=== PATIENT | female | born 2000 | race Caucasian/White ===

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

== ENCOUNTER 2019-01-04 15:13 | Emergency (ER) | payer OTHER ==
[~2019-01-04] VITALS: Ht 162.6 cm; Wt 58.5 kg
[2019-01-04 15:30] VITALS: BP 110/75; Ht 162.6 cm; Wt 58.5 kg
== END 2019-01-04 18:51 | disposition home or self-care (01) ==
LOC: ED 15:13
DX: J02.9 Acute pharyngitis, unspecified (principal)
CPT/HCPCS: J0561; J1100

== ENCOUNTER 2019-01-17 16:16 | Emergency (ER) | payer OTHER ==
[~2019-01-17] VITALS: Ht 165.1 cm; Wt 60.8 kg
[2019-01-17 16:19] VITALS: BP 139/70; Ht 165.1 cm; Wt 60.8 kg
== END 2019-01-17 16:51 | disposition home or self-care (01) ==
LOC: ED 16:16
DX: J02.9 Acute pharyngitis, unspecified (principal)

== ENCOUNTER 2019-07-25 16:01 | Emergency (ER) | payer OTHER ==
[~2019-07-25] VITALS: Ht 162.6 cm; Wt 59.0 kg
[2019-07-25 16:07] VITALS: Ht 162.6 cm; Wt 59.0 kg
[2019-07-25 18:47] VITALS: BP 115/85
== END 2019-07-25 18:47 | disposition home or self-care (01) ==
LOC: ED 16:01
DX: J02.9 Acute pharyngitis, unspecified (principal); H92.03 Otalgia, bilateral
CPT/HCPCS: 86308; J1100

== ENCOUNTER 2019-08-17 13:28 | Emergency (ER) | payer OTHER ==
[~2019-08-17] VITALS: Ht 162.6 cm; Wt 61.7 kg
[2019-08-17 13:45] VITALS: BP 135/83; Ht 162.6 cm; Wt 61.7 kg
== END 2019-08-17 14:31 | disposition home or self-care (01) ==
LOC: ED 13:28
DX: L04.0 Acute lymphadenitis of face, head and neck (principal)

== ENCOUNTER 2019-10-14 03:53 | Emergency (ER) | payer BC ==
[~2019-10-14] VITALS: Ht 162.6 cm; Wt 58.5 kg
[2019-10-14 04:05] VITALS: Ht 162.6 cm; Wt 58.5 kg
[2019-10-14 06:22] VITALS: BP 126/90
== END 2019-10-14 06:22 | disposition home or self-care (01) ==
LOC: ED 03:53
DX: R04.1 Hemorrhage from throat (principal)

== ENCOUNTER 2020-07-04 14:27 | Emergency (ER) | payer BC ==
[~2020-07-04] VITALS: Ht 162.6 cm; Wt 59.9 kg
[2020-07-04 14:39] VITALS: Ht 162.6 cm; Wt 59.9 kg
[2020-07-04 15:53] VITALS: BP 127/73
== END 2020-07-04 15:53 | disposition home or self-care (01) ==
LOC: ED 14:27
DX: N39.0 Urinary tract infection, site not specified (principal)

== ENCOUNTER 2020-08-22 17:54 | Emergency (ER) | payer BC ==
[~2020-08-22] VITALS: Ht 162.6 cm; Wt 59.4 kg
[2020-08-22 18:28] VITALS: Ht 162.6 cm; Wt 59.4 kg
[2020-08-22 19:20] LABS: BASOPHIL % 0.3 % (0-2); PLATELET COUNT 194 x10^3mcL (130-400)
[2020-08-22 19:37] LABS: RED CELL DISTRIBUTION WIDTH 19.3 % (11.5-14.5)
[2020-08-22 19:41] LABS: CALCIUM 8.8 mg/dL (8.5-10.1); CHLORIDE SERUM 101 mmol/L (98-107); CREATININE SERUM 0.8 mg/dL (0.6-1.0); GFR1 > 60 mL/min; GLUCOSE SERUM 97 mg/dL (74-106); POTASSIUM SERUM 3.7 mmol/L (3.5-5.1); SODIUM SERUM 135 mmol/L (136-145)
[2020-08-22 19:47] LABS: ALBUMIN 3.6 g/dL (3.4-5.0); ALKALINE PHOSPHATASE 48 U/L (46-116); ALT/SGPT 15 U/L (14-59); AST/SGOT 13 U/L (15-37); BILIRUBIN TOTAL 0.6 mg/dL (0.20-1.00); LIPASE 122 IU/L (73-393); TOTAL PROTEIN, SERUM 7.6 g/dL (6.4-8.2)
[2020-08-22 19:55] LABS: microscopic required? NO
[2020-08-22 20:06] LABS: urine erythrocyte NEGATIVE (NEGATIVE)
[2020-08-22 21:36] VITALS: BP 112/61
== END 2020-08-22 21:36 | disposition home or self-care (01) ==
LOC: ED 17:54
PROVIDERS: Emergency Medicine
DX: K52.9 Noninfective gastroenteritis and colitis, unspecified (principal)
CPT/HCPCS: J7030; Q9967